=== PATIENT | male | born 1995 | race Two or more races ===

== ENCOUNTER 2024-04-14 11:17 | Emergency (ER) | payer MEDICAID, SELFPAY ==
[2024-04-14 11:18] VITALS: BMI 22.8
[2024-04-14 11:54] VITALS: BP 109/50; PULSE 73; RESP 19; TEMP 36.7; O2SAT 99
--- NOTE | 2024-04-14 12:16 | XR_ITS ---
Examination: Abdomen sonogram, Limited Date and time of exam: April 14, 2024 1410 hours INDICATIONS: Nausea right upper abdominal pain and vomiting beginning 2 days ago Technique: Real-time castro scale transabdominal sonographic images of the upper abdomen obtained. Findings: Normal gallbladder Normal common bile duct 0.3 cm Pancreatic head 2.1 cm Liver 13.8 cm smooth contour no focal liver lesions Normal hepatopedal portal venous flow Patent IVC IMPRESSION: Normal gallbladder Normal common bile duct
--- NOTE | 2024-04-14 12:17 | PD.EDRME ---
Rapid Medical Screening Exam E Arrival date/time: 04/14/24 11:17 28-year-old male presents emergency department with complaints of acute epigastric abdominal pain and vomiting. I have greeted and performed a focused initial assessment of this patient. Initial appropriate labs ordered at this time. A comprehensive ED assessment and evaluation of the patient and analysis of all test and completion of medical decision making process will be conducted by additional ED provider. Chief Complaint: Abdominal Pain Time Seen by Provider: 04/14/24 11:42 Vital signs: Vital Signs Temperature 98.0 F 04/14/24 11:54 Pulse Rate 73 04/14/24 11:54 Respiratory Rate 19 04/14/24 11:54 Blood Pressure 109/50 L 04/14/24 11:54 Pulse Oximetry (%) 99 04/14/24 11:54 Oxygen Delivery Method Room Air 04/14/24 11:54
[2024-04-14 13:11] LABS: Basophils % (Auto) 0 % (0-2.5); Eosinophils # (Auto) 0.2 Thou/mm3 (0.0-0.5); Eosinophils % (Auto) 3 % (0-10); Hematocrit 36.1 % (41.0-53.0); Hemoglobin 12.4 g/dL (13.5-16.0); Immature Granulocytes % (Auto) 0 % (0-0); Immature Granulocytes Auto 0.01 Thou/mm3 (0.00-0.00); Lymphocytes # (Auto) 1.4 Thou/mm3 (1.0-4.8); Lymphocytes % (Auto) 30 % (10-50); Mean Corpuscular HGB Conc 34.3 g/dl (31.0-37.0); Mean Corpuscular Hemoglobin 30.5 pg (25.0-35.0); Mean Corpuscular Volume 89 fL (80-100); Monocytes # (Auto) 0.6 Thou/mm3 (0.0-0.8); Monocytes % (Auto) 12 % (0-12); Neutrophils # (Auto) 2.5 Thou/mm3 (1.8-7.7); Neutrophils % (Auto) 54 % (37-80); Nucleated Red Blood Cell % 0 /100 WBC (0); Platelet Count 269 Thou/mm3 (140-440); RDW Standard Deviation 41.7 fL (35.1-43.9); Red Blood Count 4.06 Miln/mm3 (4.50-5.90); White Blood Count 4.6 Thou/mm3 (3.8-10.6)
[2024-04-14] MEDS: ONDANSETRON ODT 4 MG TABRAP PO (13:23)
[2024-04-14] MEDS: MG HYD/AL HYD/SIME (Maalox Reg) SUSP 30 ML UDC PO (13:24)
[2024-04-14] MEDS: LIDOCAINE VISCOUS 2% 15 ML UDC PO (13:24)
[2024-04-14 13:31] LABS: Alanine Aminotransferase 17 U/L (10-49); Albumin, Serum 4.7 gm/dL (3.5-5.0); Alkaline Phosphatase 59 U/L (46-116); Anion Gap 7 (7-16); Aspartate Amino Transferase 16 U/L (0-34); BUN/Creatinine Ratio 19 Ratio (12-20); Bilirubin,Total 0.5 mg/dL (0.3-1.2); Blood Urea Nitrogen 15 mg/dL (9-23); Calcium 9.5 mg/dL (8.3-10.6); Calcium (Corrected) 9.5 mg/dL (8.5-10.1); Carbon Dioxide 29.6 mMol/L (20.0-31.0); Chloride 107 mMol/L (98-107); Creatinine (Component) 0.8 mg/dL (0.6-1.3); Estimated Creatinine Clearance 137.9 mL/min (>60); Globulin 2.3 gm/dL (2.3-3.5); Glucose 93 mg/dL (74-106); Lipase 29 U/L (12-53); Osmolality,Calculated 287 (275-295); Potassium 4.2 mMol/L (3.4-5.1); Sodium 144 mMol/L (136-145); eGFR > 60 See Note
[2024-04-14 14:28] VITALS: BP 115/70; PULSE 68; RESP 19; TEMP 36.8; O2SAT 100
--- NOTE | 2024-04-14 17:26 | PD.EDADULT ---
ED General RME/HPI General Chief complaint: Abdominal Pain Stated complaint: STOMACH PROBLEMS/VOMITING/DIARRHEA x 3 DAYS Time Seen by Provider: 04/14/24 11:42 Arrival date/time: 04/14/24 11:17 CC: Epigastric pain HPI ongoing for the past 2 days the patient was just recently released from jail, and overindulged in food by admission. The patient states is worse at nighttime when he sleeps. The patient states he is at 2 days also getting up in the morning with nausea. Patient denies fever chills shortness of breath difficulty breathing no other complaints. Patient states he has been taking ondansetron but it does not work . RME / HPI RME / HPI narrative: 04/14/24 11:17 28-year-old male presents emergency department with complaints of acute epigastric abdominal pain and vomiting. I have greeted and performed a focused initial assessment of this patient. Initial appropriate labs ordered at this time. A comprehensive ED assessment and evaluation of the patient and analysis of all test and completion of medical decision making process will be conducted by additional ED provider. Related Data Previous Rx's ?Medication ?Instructions ?Recorded metoclopramide HCl 5 mg tablet 5 mg PO QDAY #14 tabs 04/14/24 (Reglan) pantoprazole 20 mg tablet,delayed 20 mg PO QDAY #30 tabs 04/14/24 release (Protonix) Allergies Allergy/AdvReac Type Severity Reaction Status Date / Time No Known Allergies Allergy Verified 04/14/24 11:19 Review of Systems Review of Systems Narrative Review of Systems: GEN: No fever, no chills, no weight loss EYES: No discharge, no visual changes, no pain HEENT: No ear pain, no congestion, no sore throat PULM: No shortness of breath, no cough, no congestion CV: No chest pain, no dyspnea on exertion, no palpitations GI: + nausea, + vomiting, no diarrhea, + pain, no constipation : No frequency, no urgency, no dysuria MUSC/SKEL: No joint pain, no back pain SKIN: No rash PSYCH: No hallucinations, no depression HEME/LYMPH: No easy bleeding or bruising tendencies NEURO: No weakness, no headache Past Medical History Social History SMOKING STATUS: Heavy (> 1 pack/day) ED Exam Narrative Physical exam: [General: Not in any acute distress Head normocephalic HEENT: Within acceptable limits Neck is supple nontender Chest equal chest rise nontender to palpation Respiratory: Clear to auscultation no wheezes crackles or rubs CV: Rate rhythm is regular no murmurs rubs or clicks Abdomen soft mild periumbilical and epigastric tenderness with palpation no reflexive guarding no rebound tenderness otherwise abdomen is nontender no masses positive bowel sounds all 4 quadrants Back: No CVA tenderness no spinous process tenderness from cervical spine thoracic and lumbar spine Skin: Intact no petechiae rash induration ulceration or crepitus Extremities: Moving all extremity against resistance cap refill less than 2 seconds neurosensory intact Neuro: Awake alert oriented x3 Glascow coma 15 no focal deficits] Course Quality Measures none Orders Category Date Time Status US gall bladder Stat Exams 04/14/24 12:16 Completed CBC Stat Lab 04/14/24 13:03 Completed CMP [Comprehensive Metabolic Panel] Stat Lab 04/14/24 13:03 Completed Lipase Stat Lab 04/14/24 13:03 Completed Lidocaine 2% Viscous [Xylocaine 2% Viscous] Med 04/14/24 12:16 Discontinued 15 ml PO X1 ONE Ondansetron Odt [Zofran Odt] Med 04/14/24 12:16 Discontinued 4 mg PO X1 ONE mg Hyd/Al Hyd/Mora Susp [Maalox Susp] Med 04/14/24 12:16 Discontinued 30 ml PO X1 ONE Vital Signs Vital signs: Vital Signs Temperature 98.0 F 04/14/24 11:54 Pulse Rate 73 04/14/24 11:54 Respiratory Rate 19 04/14/24 11:54 Blood Pressure 109/50 L 04/14/24 11:54 Pulse Oximetry (%) 99 04/14/24 11:54 Oxygen Delivery Method Room Air 04/14/24 11:54 [facility] Patient data External records reviewed:: [facility] previous records Clinical information provided by:: patient Social determinants that could affect healthcare access:: none Patient has the following chronic illnesses:: None How is presenting disease/condition affected by chronic disease/condition?: uneffected by Evaluation data The following diagnostics were reviewed and interpreted by me:: lab results and radiology exam(s) Lab and/or radiology exams considered but not ordered:: CBC shows no acute leukocytosis anemia thrombocytopenia CMP shows no acute electrolyte imbalances renal impairment transaminitis or T. bili elevation Lipase is normal Interpretation Summary: Epigastric pain, acid reflux Medications Medications considered but not ordered:: None Medication administrations:: Medication Administration History Discontinued Medications Al Hydrox/Mg Hydrox/Simethicone (Mg Hyd/Al Hyd/Mora (Maalox Reg) Susp 30 Ml Udc) 30 ml PO X1 ONE Stop: 04/14/24 12:17 Last Admin: 04/14/24 13:24 Dose: 30 ml Documented By: [facility] Lidocaine HCl (Lidocaine Viscous 2% 15 Ml Udc) 15 ml PO X1 ONE Stop: 04/14/24 12:17 Last Admin: 04/14/24 13:24 Dose: 15 ml Documented By: [facility] Ondansetron HCl (Ondansetron Odt 4 Mg Tabrap) 4 mg PO X1 ONE; Protocol Stop: 04/14/24 12:17 Last Admin: 04/14/24 13:23 Dose: 4 mg Documented By: [facility] None Consultations Consultation(s) initiated? (list below): No Diagnosis Differential Diagnosis ED Complaint MDM: GERD acid reflux heartburn gastritis Most likely diagnosis given after review of the tests above:: Acid reflux Admission Indicated Admission indicated?: not indicated Explain why admission is indicated or not indicated:: Stable discharge Admission Request Was there a request for admission?: No Disposition Plan Disposition Plan: Discharge Discharge Attestation Discharge Attestation: The patient and all family members were given an opportunity to ask questions and understood the discharge instructions. Discharge instructions specifically effects, indications for sooner follow up or return to the emergency department, and the expected course of current diagnosis. Patient condition: Stable Medical Decision Making Differential Diagnosis Differential Diagnosis: GERD acid reflux heartburn gastritis Lab Data 04/14/24 13:03 04/14/24 13:03 Labs: Lab Results 04/14/24 Range/Units 13:03 WBC 4.6 (3.8-10.6) Thou/mm3 RBC 4.06 L (4.50-5.90) Miln/mm3 Hgb 12.4 L (13.5-16.0) g/dL Hct 36.1 L (41.0-53.0) % MCV 89 (80-100) fL MCH 30.5 (25.0-35.0) pg MCHC 34.3 (31.0-37.0) g/dl RDW Std Deviation 41.7 (35.1-43.9) fL Plt Count 269 (140-440) Thou/mm3 Neut % (Auto) 54 (37-80) % Lymph % (Auto) 30 (10-50) % Hunt % (Auto) 12 (0-12) % Eos % (Auto) 3 (0-10) % Baso % (Auto) 0 (0-2.5) % Neut # (Auto) 2.5 (1.8-7.7) Thou/mm3 Lymph # (Auto) 1.4 (1.0-4.8) Thou/mm3 Hunt # (Auto) 0.6 (0.0-0.8) Thou/mm3 Eos # (Auto) 0.2 (0.0-0.5) Thou/mm3 Baso # (Auto) 0.0 (0.0-0.2) Thou/mm3 Immature Gran # (Auto) 0.01 H (0.00-0.00) Thou/mm3 Absolute Nucleated RBC 0.00 (0.00-0.00) Thou/mm3 Immature Gran % 0 (0-0) % Nucleated RBC % 0 (0) /100 WBC Sodium 144 (136-145) mMol/L Potassium 4.2 (3.4-5.1) mMol/L Chloride 107 (98-107) mMol/L Carbon Dioxide 29.6 (20.0-31.0) mMol/L Anion Gap 7 (7-16) BUN 15 (9-23) mg/dL Creatinine 0.8 (0.6-1.3) mg/dL Estim Creat Clear Calc 137.9 (>60) mL/min eGFR > 60 (60 - ) See Note BUN/Creatinine Ratio 19 (12-20) Ratio Glucose 93 (74-106) mg/dL Calculated Osmolality 287 (275-295) Calcium 9.5 (8.3-10.6) mg/dL Corrected Calcium 9.5 (8.5-10.1) mg/dL Total Bilirubin 0.5 (0.3-1.2) mg/dL AST 16 (0-34) U/L ALT 17 (10-49) U/L Alkaline Phosphatase 59 (46-116) U/L Total Protein 7.0 (5.7-8.2) gm/dL Albumin 4.7 (3.5-5.0) gm/dL Globulin 2.3 (2.3-3.5) gm/dL Albumin/Globulin Ratio 2.0 (1.2-2.2) Lipase 29 (12-53) U/L Discharge Plan Plan Patient Disposition: HOME (Self Care) Patient condition on transfer: Stable Prescriptions/Referrals Prescriptions/Med Rec: New metoclopramide HCl [Reglan] 5 mg tablet 5 mg PO QDAY Qty: 14 0RF pantoprazole [Protonix] 20 mg tablet,delayed release (DR/EC) 20 mg PO QDAY Qty: 30 1RF Referrals: Nestor Persaud MD [Physician] - In 1 week No Primary/Family,Physician [Primary Care Provider] - In 1 week Problem List Clinical Impression: Gastritis Patient/Caregiver Discharge Instructions Education Materials: ED Gastritis (Adult) Additional Instructions: Take the medications as prescribed for nausea and for heartburn avoid greasy spicy and fatty foods avoid all eating foods for 2 hours before sleep. If there is worsening of symptoms follow-up your primary care provider return the emergency room for reevaluation. Print Language: Finnish Stand Alone Forms: [facility] Award Info., Patient Portal Info Letter PA/REGULATOR INSPECTOR Supervising Physician PA/REGULATOR INSPECTOR Supervising Physician: Leonel Wilkes ENP
== END 2024-04-14 17:40 | disposition home or self-care (01) ==
PROVIDERS: Nurse Practitioner Primary Care; Emergency Provider Emergency Medicine
DX: K29.70 Gastritis, unspecified, without bleeding (principal)
CPT/HCPCS: 36415; 76705; 80053; 83690; 85025; 99284; J3490; Q0162; A9270